=== PATIENT | male | born 1970 | race Caucasian/White ===

== ENCOUNTER 2018-10-03 19:36 | Emergency (ER) | payer MEDICAID ==
[~2018-10-03] VITALS: Ht 182.9 cm; Wt 95.3 kg
--- NOTE | 2018-10-03 19:44 | NUR ---
Pt bib [facility]101 with c/o chest pain x 3 hrs. Normal sinus rhythm on campus monitor. Denies shortness of breath. SA02 100% room air. Denies N/V/D. AAXO4.
[2018-10-03 20:13] LABS: BASOPHILS # (AUTO) 0.1 K/uL (0.0-8.0); BASOPHILS % (AUTO) 0.8 % (0.0-2.0); EOSINOPHILS # (AUTO) 0.2 K/uL (0.0-0.7); EOSINOPHILS % (AUTO) 1.4 % (0.0-7.0); HEMATOCRIT 47.4 % (36.7-47.1); HEMOGLOBIN 15.6 g/dL (12.5-16.3); LYMPHOCYTES # (AUTO) 1.4 K/uL (20.0-40.0); LYMPHOCYTES % (AUTO) 9.2 % (20.5-51.5); MEAN CORPUSCULAR HEMOGLOBIN 27.6 uug (23.8-33.4); MEAN CORPUSCULAR HGB CONC 33 g/dL (32.5-36.3); MEAN CORPUSCULAR VOLUME 83.6 fL (73.0-96.2); MONOCYTES # (AUTO) 0.8 K/uL (2.0-10.0); MONOCYTES % (AUTO) 5.2 % (0.0-11.0); NEUTROPHILS # (AUTO) 12.9 K/uL (1.8-8.9); NEUTROPHILS % (AUTO) 83.4 % (38.5-71.5); PLATELET COUNT (AUTO) 176 K/uL (152-348); RED BLOOD CELL COUNT(AUTO) 5.66 MIL/uL (4.06-5.63); WHITE BLOOD COUNT (AUTO) 15.4 K/uL (3.6-10.2)
[2018-10-03 20:21] LABS: CREATININE 0.9 mg/dL (0.6-1.3); POTASSIUM 4.2 mmol/L (3.5-5.1)
[2018-10-03 20:36] LABS: BILIRUBIN,DIRECT 0.1 mg/dL (0.0-0.2); BILIRUBIN,TOTAL 0.4 mg/dL (0.2-1.0)
[2018-10-03] MEDS ORDERED: AZITHROMYCIN 250 MG TABLET ONE (20:44)
[2018-10-03] MEDS ORDERED: AZITHROMYCIN 250 MG TABLET PO ONE (20:45)
[2018-10-03] MEDS ORDERED: HYDROCODONE/APAP 5-325MG TABLET ONE (20:45)
[2018-10-03] MEDS ORDERED: HYDROCODONE/APAP 5-325MG TABLET PO ONE (20:45)
--- NOTE | 2018-10-03 20:50 | NUR ---
Patient discharged to home in stable conditon. Written and verbal after care instructions given. Patient verbalizes understanding of instructions. Pt ambulated out of ER in steady gait. All belongings with pt. VSS. NAD noted.
[2018-10-03 21:00] VITALS: BP 150/87
== END 2018-10-03 21:01 | disposition home or self-care (01) ==
LOC: ER 19:36
DX: J06.9 Acute upper respiratory infection, unspecified (principal); F17.200 Nicotine dependence, unspecified, uncomplicated; Z59.0 Homelessness
CPT/HCPCS: 36415; 70030-TC; 71045; 85025; 85730; 93005; A4663; Q0144

== ENCOUNTER 2019-09-23 12:07 | Emergency (ER) | payer MEDICAID, OTHER ==
[~2019-09-23] VITALS: Ht 185.4 cm; Wt 113.4 kg
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
[2019-09-23] MEDS ORDERED: HYDROCODONE/APAP 5-325MG TABLET ONE (12:23)
[2019-09-23] MEDS ORDERED: HYDROCODONE/APAP 5-325MG TABLET PO ONE (12:30)
--- NOTE | 2019-09-23 12:32 | NUR ---
Patient transported to CT in stable condition.
--- NOTE | 2019-09-23 12:35 | NUR ---
Ct could not be performed because patient could not lay flat.
[2019-09-23] MEDS ORDERED: LIDOCAINE VISCUS 2% 15 ML UDC ONE (12:45)
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
--- NOTE | 2019-09-23 12:55 | NUR ---
Offered to perform wound care, and patient refuses to be touched or to have wound care performed, patient states that he wants to leave and does not want to be cared for. ERMD aware
--- NOTE | 2019-09-23 13:00 | NUR ---
Pt is refusing treatment (wound care, laceration care). Pt states he wants "more pain medicine". notified and spoke with the pt. Pt is agiated and yelling at staff, security was called and are at bedside.
[2019-09-23] MEDS ORDERED: LIDOCAINE HCL 1% 20 ML VIAL ONE (13:05)
--- NOTE | 2019-09-23 13:10 | NUR ---
Patient agreed to having wound care performed.
--- NOTE | 2019-09-23 13:20 | NUR ---
Table set up for ERMD for bedside suture
--- NOTE | 2019-09-23 13:40 | NUR ---
Patient refusing sutures and wants to leave. ERMD made aware. Patient will be signing out AMA
--- NOTE | 2019-09-23 13:51 | NUR ---
Patient does not wish to proceed with medical care recommended by Dr. Leong. Patient given information related to possible complications, up to and including , which could occur as a result of leaving the hospital at this time. Patient verbalizes understanding of risks involved due to leaving against medical advice. Patient has signed AMA form, but refuses to sign homeless discharge. Patient given written and verbal discharge instructions. Patient verbalizes understanding of instructions. Patient is ambulatory with steady gait. Refuses offer of intermediate placement. Patient given list of available shelters in surrounding area.
[2019-09-23] MEDS ORDERED: LIDOCAINE HCL 1% 20 ML VIAL IJ ONE (18:30)
[2019-09-23] MEDS ORDERED: LIDOCAINE VISCUS 2% 15 ML UDC MM ONE (18:30)
== END 2019-09-23 13:54 | disposition home or self-care (01) ==
LOC: ER 12:08
DX: S09.90XA Unspecified injury of head, initial encounter (principal); S01.81XA Laceration without foreign body of other part of head, initial encounter; S49.91XA Unspecified injury of right shoulder and upper arm, initial encounter; V19.9XXA Pedal cyclist (driver) (passenger) injured in unspecified traffic accident, initial encounter; Y93.89 Activity, other specified; Y92.89 Other specified places as the place of occurrence of the external cause; Y99.8 Other external cause status; Z59.0 Homelessness; Z87.891 Personal history of nicotine dependence
CPT/HCPCS: 73020; 73060; 99284; J3490; A4217; A4663